=== PATIENT | female | born 1945 | race Caucasian/White ===

== ENCOUNTER 2020-12-29 18:37 | Emergency (ER) | payer MEDICARE, BC ==
[2020-12-29] MEDS ORDERED: Nitrofurantoin Monohydrate/Macrocrystalline 100 MG Cap PO ONE ×2 (18:38→19:15)
[2020-12-29 18:46] VITALS: BP 134/90; PULSE 130
[2020-12-29] MEDS ORDERED: Phenazopyridine 95 MG Tab PO ONE (19:18)
--- NOTE | 2020-12-29 19:20 | EDM.PDOC ---
ED HPI GENERAL MEDICAL PROBLEM - General Chief Complaint: Genitourinary Problem Stated Complaint: THINKS SHE HAS UTI? Time Seen by Provider: 12/29/20 19:00 Source of Information: Reports: Patient, RN, RN Notes Reviewed History Limitations: Reports: No Limitations - History of Present Illness INITIAL COMMENTS - FREE TEXT/NARRATIVE: Lindsay is a 75 y/o female who presents to the ED via personal vehicle with complaints of dysuria, frequency, and suprapubic fullness. She reports these symptoms began approximately three days ago and have progressed in severity to the point she is unable to fully void. She denies fever, shaking chills, palpitations, nausea, vomiting, hematuria, constipation, or diarrhea. She has not taken any medications for these symptoms. She denies history of recurrent UTI. Trunk Pain Score (Numeric/FACES): 4 - Related Data Allergies Allergy/AdvReac Type Severity Reaction Status Date / Time amoxicillin Allergy Rash Verified 05/29/16 07:22 budesonide [From Pulmicort] Allergy Other Verified 05/29/16 07:22 minerals [From Enviro Stress] Allergy Itching Verified 05/29/16 07:22 nortriptyline [From Pamelor] Allergy Other Verified 05/29/16 07:22 Penicillins Allergy Swelling Verified 12/29/20 18:50 vitamin B complex and C Allergy Itching Verified 05/29/16 07:22 [From Enviro Stress] vitamin E (d-alpha Allergy Itching Verified 05/29/16 07:22 tocopherol) [From Enviro Stress] hydrocodone AdvReac Itching Verified 05/29/16 07:22 montelukast [From Singulair] AdvReac Nausea Verified 05/29/16 07:22 oxycodone AdvReac Nausea and Verified 05/29/16 07:22 Vomiting sertraline [From Zoloft] AdvReac Diarrhea Verified 05/29/16 07:22 benedict Allergy Redness Uncoded 05/29/16 07:22 ACETAMINOPHEN-CODEINE AdvReac Nausea and Uncoded 05/29/16 07:22 Vomiting Home Meds: Home Meds LORazepam 1 tab PO ASDIRECTED PRN 09/19/15 [History] Losartan/Hydrochlorothiazide [Losartan-HCTZ 50-12.5 MG] 1 each PO DAILY 09/19/15 [History] Tamoxifen Citrate 20 mg PO DAILY 09/19/15 [History] Venlafaxine HCl [Venlafaxine ER] 150 mg PO DAILY 09/19/15 [History] Acetaminophen [Mapap] 500 mg PO DAILY 05/16/16 [History] Albuterol [IJD: Ventolin HFA] 1 puff INH ASDIRECTED PRN 05/16/16 [History] Calcium Carbonate/Vitamin D3 [Calcium 500 + Vit D Caplet] 1 tab PO DAILY 05/16/16 [History] Cetirizine [ZyrTEC] 10 mg PO DAILY 05/16/16 [History] Folic Acid/Multivit-Min/Lutein [Centrum Silver Chewable Tablet] 1 tab PO DAILY 05/16/16 [History] Ibuprofen 200 mg PO TID PRN 05/16/16 [History] Ketorolac [Acular 0.5% Ophth Soln] 1 drop EYELF ASDIRECTED 05/16/16 [History] Moxifloxacin [Vigamox 0.5% Ophth Soln] 1 drop EYELF ASDIRECTED 05/16/16 [History] Omeprazole 20 mg PO DAILY 05/16/16 [History] prednisoLONE Acetate [Prednisolone Acetate] 1 drop EYELF ASDIRECTED 05/16/16 [History] Past Medical History HEENT History: Reports: Cataract Cardiovascular History: Reports: Hypertension Respiratory History: Reports: Bronchitis, Recurrent, Pneumonia, Recurrent Gastrointestinal History: Reports: Diverticulosis, GERD, Hemorrhoids Genitourinary History: Reports: UTI, Recurrent 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: , Spontaneous Musculoskeletal History: Reports: Back Pain, Chronic, Fibromyalgia, Osteoarthritis Neurological History: Reports: Migraines Psychiatric History: Reports: Panic Attack Endocrine/Metabolic History: Reports: None Hematologic History: Reports: None Immunologic History: Reports: None Oncologic (Cancer) History: Reports: Breast, Ovarian Dermatologic History: Reports: None - Infectious Disease History Infectious Disease History: Reports: Chicken Pox, Measles, Mumps - Past Surgical History HEENT Surgical History: Reports: None, Cataract Surgery Cardiovascular Surgical History: Reports: None GI Surgical History: Reports: Cholecystectomy, Hernia, Abdominal Female Surgical History: Reports: Hysterectomy, Mastectomy Oncologic Surgical History: Reports: Mastectomy Other Oncologic Surgeries/Procedures: right mastectomy Dermatological Surgical History: Reports: None Social & Family History - Family History HEENT: Reports: Cataract Cardiac: Reports: High Cholesterol, Hypertension Respiratory: Reports: COPD GI: Reports: None : Reports: None OBGYN: Reports: None Musculoskeletal: Reports: Fibromyalgia Neurological: Reports: None Psychiatric: Reports: None Endocrine/Metabolic: Reports: None Hematologic: Reports: None Immunologic: Reports: None Dermatologic: Reports: None Oncologic: Reports: Breast, Other (See Below) Other Oncologic Family History: stomach - Tobacco Use Tobacco Use Status *Q: Never Tobacco User - Caffeine Use Caffeine Use: Reports: Coffee, Soda Other Caffeine Use: 3 cups in the am - Recreational Drug Use Recreational Drug Use: No ED ROS GENERAL - Review of Systems Review Of Systems: Comprehensive ROS is negative, except as noted in HPI. ED EXAM, RENAL/ - Physical Exam Exam: See Below Exam Limited By: No Limitations General Appearance: Alert, No Apparent Distress Throat/Mouth: Normal Inspection, Normal Oropharynx, Normal Voice, No Airway Compromise Head: Atraumatic, Normocephalic Respiratory/Chest: No Respiratory Distress, Lungs Clear, Normal Breath Sounds, No Accessory Muscle Use, Chest Non-Tender Cardiovascular: Normal Peripheral Pulses, Regular Rate, Rhythm, No Edema, No Gallop, No JVD, No Murmur, No Rub GI/Abdominal: Normal Bowel Sounds, Soft, No Distention, No Abnormal Bruit, No Ma ss, Pelvis Stable, Tender (To palpation of suprapubic area) (Female) Exam: Deferred Rectal (Female) Exam: Deferred Back Exam: Normal Inspection, Full Range of Motion. No: CVA Tenderness (L), CVA Tenderness (R) Neurological: Alert, Oriented, CN II-XII Intact, Normal Cognition, Normal Gait, No Motor/Sensory Deficits Psychiatric: Normal Affect, Normal Mood Skin Exam: Warm, Dry, Intact, Normal Color, No Rash. No: Ecchymosis, Erythema, Jaundice, Mottled, Pallor, Petechiae Course - Vital Signs Last Recorded V/S: Last Vital Signs Temp 97.1 F 12/29/20 18:45 Pulse 130 H 12/29/20 18:45 Resp 20 12/29/20 18:45 BP 134/90 12/29/20 18:45 Pulse Ox 95 12/29/20 18:45 - Orders/Labs/Meds Orders: Active Orders 24 hr Category Date Time Status CULTURE URINE [RM] Stat Lab 12/29/20 18:39 Received Labs: Laboratory Tests 12/29/20 Range/Units 18:58 Urine Color Yellow (YELLOW) Urine Appearance Cloudy (CLEAR) Urine pH 6.0 (5.0-9.0) Ur Specific [place] 1.025 (1.005-1.030) Urine Protein Trace H (NEGATIVE) Urine Glucose (UA) Negative (NEGATIVE) Urine Ketones Negative (NEGATIVE) Urine Occult Blood Moderate H (NEGATIVE) Urine Nitrite Negative (NEGATIVE) Urine Bilirubin Negative (NEGATIVE) Urine Urobilinogen 0.2 (0.2-1.0) mg/dL Ur Leukocyte Esterase Moderate H (NEGATIVE) Urine RBC 0-5 /HPF Urine WBC Packed H (0-5/HPF) /HPF Ur Epithelial Cells Moderate H (NOT SEEN) /HPF Urine Bacteria Many H (0-FEW/HPF) /HPF Meds: Medications Discontinued Medications Generic Name Dose Route Start Last Admin Trade Name Freq PRN Reason Stop Dose Admin Nitrofurantoin Macrocrystals 100 mg 12/29/20 19:15 12/29/20 19:26 Nitrofurantoin Monohydrate/Macrocrystalline 100 Mg Cap PO 12/29/20 19:16 100 mg ONETIME ONE Administration Nitrofurantoin Macrocrystals Confirm 12/29/20 19:24 Nitrofurantoin Monohydrate/Macrocrystalline 100 Mg Cap Administered 12/29/20 19:25 Dose 100 mg .ROUTE .STK-MED ONE Phenazopyridine HCl 95 mg 12/29/20 19:18 12/29/20 19:26 Phenazopyridine 95 Mg Tab PO 12/29/20 19:19 95 mg ONETIME ONE Administration - Re-Assessments/Exams Free Text/Narrative Re-Assessment/Exam: 12/29/20 UA positive for occult blood, LE, and packed WBCs; culture pending. Findings of examination and lab work reviewed with patient. Will treat with Macrobid and one dose of Pyridium. Supportive cares for acute cystis reviewed, as well as red flag signs and symptoms which would warrant reevaluation. Patient verbalized understanding and agreement with the plan of care. Departure - Departure Time of Disposition: 19:18 Disposition: Home, Self-Care 01 Condition: Good Clinical Impression: Acute cystitis Qualifiers: Hematuria presence: with hematuria Qualified Code(s): N30.01 - Acute cystitis with hematuria - Discharge Information *PRESCRIPTION DRUG MONITORING PROGRAM REVIEWED*: Not Applicable *COPY OF PRESCRIPTION DRUG MONITORING REPORT IN PATIENT TRACY: Not Applicable Instructions: Urinary Tract Infection, Adult, [id number] Forms: ED Department Discharge Additional Instructions: Rx: Macrobid 1.) Take all of your antibiotics until they are gone. 2.) Drink plenty of water to stay hydrated and keep your bladder/kidneys flushed out. 3.) Follow up with your primary care provider, or return to the emergency department, with persistent symptoms despite 48 hours of antibiotics, fever, shaking chills, or inability to urinate. Sepsis Event Note (ED) - Evaluation Sepsis Screening Result: No Definite Risk - Focused Exam Vital Signs: Vital Signs Temp Pulse Resp BP Pulse Ox 12/29/20 18:45 97.1 F 130 H 20 134/90 95
[2020-12-29] MEDS ORDERED: Nitrofurantoin Monohydrate/Macrocrystalline 100 MG Cap ONE (19:24)
== END 2020-12-29 19:30 | disposition home or self-care (01) ==
LOC: DL.ED 18:37
DX: N30.01 Acute cystitis with hematuria (principal); K21.9 Gastro-esophageal reflux disease without esophagitis; I10 Essential (primary) hypertension; Z88.0 Allergy status to penicillin; Z88.8 Allergy status to other drugs, medicaments and biological substances; Z88.5 Allergy status to narcotic agent
CPT/HCPCS: 81001; 87086; 87088; 87186; 99283; A9270

== ENCOUNTER 2022-12-06 07:27 | Day surgery (SDC) | payer MEDICARE, BC ==
[~2022-12-06 07:27] MED LIST: Dextrose 5%-0.45% NaCl 1,000 ML IV SCH; Midazolam 1 MG/ML 2 ML SDV ONE; Sodium Chloride 0.9% 10 ML Syringe FLUSH PRN; Sodium Chloride 0.9% 10 ML Syringe FLUSH SCH; fentaNYL 100 MCG/2 ML SDV ONE
[2022-12-06] MEDS ORDERED: fentaNYL 100 MCG/2 ML SDV IV ONE ×5 (07:28→09:44)
[2022-12-06] MEDS ORDERED: Midazolam 1 MG/ML 2 ML SDV IV ONE ×7 (07:28→09:28)
[2022-12-06 12:58] VITALS: PULSE 71
[2022-12-06 12:59] VITALS: BP 131/57
== END 2022-12-06 11:45 | disposition home or self-care (01) ==
LOC: DL.ENDO 07:27
PROVIDERS: ATTEND Internal Medicine Gastroenterology
DX: K64.4 Residual hemorrhoidal skin tags (principal); D12.8 Benign neoplasm of rectum; E66.09 Other obesity due to excess calories; K57.30 Diverticulosis of large intestine without perforation or abscess without bleeding; K64.9 Unspecified hemorrhoids; F32.A Depression, unspecified; F41.1 Generalized anxiety disorder; R73.9 Hyperglycemia, unspecified; I10 Essential (primary) hypertension; E03.9 Hypothyroidism, unspecified; E78.5 Hyperlipidemia, unspecified; Z90.11 Acquired absence of right breast and nipple; Z90.710 Acquired absence of both cervix and uterus; Z90.49 Acquired absence of other specified parts of digestive tract; Z88.8 Allergy status to other drugs, medicaments and biological substances; Z68.37 Body mass index [BMI] 37.0-37.9, adult
CPT/HCPCS: 45385; 88305; J2250; J3010; J7042